=== PATIENT | female | born 1965 | race Caucasian/White ===

== ENCOUNTER 2022-02-03 11:42 | Observation (INO) ==
[2022-02-03] MEDS ORDERED: SODIUM CHLORIDE 0.9% 1000ML 2,000 ML IV ONE (12:15)
--- NOTE | 2022-02-03 12:19 | Emergency Department Note ---
History of Present Illness General Chief complaint: Hypotension Stated complaint: Hypotension, recent med change Time Seen by Provider: 02/03/22 11:57 History of Present Illness 56-year-old female presents to the ED with a chief complaint of decrease in blood pressure. The patient states that she has been at the [facility] for about a week. She states that she is unsure in all the medication that she is taking but according to the nurses notes per EMS the patient was recently started on Klonopin. The patient does states that she has been sleeping a lot and she does eat and drink while she is awake. She does feel little lightheaded. No other specific complaints at this time. No recent illness. No fevers or cough. No shortness of breath or chest pains. No abdominal pains. No vomiting or diarrhea. No blood in her stools or black tarry stools. She is at the [facility] for some suicidal ideation. Past Med/Surg History Social History Smoking Status: Never smoker Preferred Language: Danish Feels Safe at Home: Yes Review of Systems A total of 10 systems reviewed and were otherwise negative Physical Exam Vital Signs Vital Signs - 24 hr 02/03/22 11:49 02/03/22 11:49 02/03/22 12:19 Pulse Rate 72 Pulse Rate [Apical] 73 Respiratory Rate 18 18 Blood Pressure 137/86 Blood Pressure [Right Arm] 94/58 L Blood Pressure Mean 103 Blood Pressure Mean [Right Arm] 70 Blood Pressure Position Lying Pulse Oximetry 96 97 95 Oxygen Delivery Method Room Air Sepsis Recent Fever Within 48 Hours No Sepsis New/Unexplained Change in Mental Status N/A Sepsis Action Taken by Nursing No Action Required CONSTITUTIONAL/VITAL SIGNS: Reviewed / noted above. GENERAL: Non-toxic in appearance. INTEGUMENTARY: Warm, dry, and [place]. HEAD: Normocephalic. EYES: without scleral icterus or trauma. ENT/OROPHARYNX: clear and moist. LYMPHADENOPATHY/NECK: Is supple without lymphadenopathy or meningismus. RESPIRATORY: Clear to auscultation bilaterally. No increased work of breathing. CARDIOVASCULAR: Regular rate and rhythm. GI/ABDOMEN: Soft and nontender. No organomegaly or pulsatile mass. EXTREMITIES: Warm and well perfused. BACK: No CVA tenderness. NEUROLOGICAL: Intact without focal deficits. PSYCHIATRIC: normal affect. MUSCULOSKELETAL: Normally developed with good muscle tone. TRIAGE NURSING DOCUMENTATION REVIEWED. Course Administered Medications Sodium Chloride (Nss 1000ml) 2,000 mls @ 999 mls/hr IV .Q2H1M ONE Stop: 02/03/22 14:15 Last Admin: 02/03/22 12:43 Dose: 999 mls/hr Documented By: RIO Medical Decision Making Differential Diagnosis Differential includes acute coronary syndrome, myocardial infarction, CVA, TIA, anemia, infection, pneumonia, UTI, pyelonephritis, poor nutrition, dehydration, electrolyte disturbance,hypoglycemia. Medical Records Attestation: I reviewed the patient's medical records. Home Medications Current Medication List: was personally reviewed by me Laboratory Data Attestation: I reviewed the patient's lab results. Result diagrams: 02/03/22 12:30 02/03/22 12:30 Lab Results 02/03/22 02/03/22 02/03/22 Range/Units 12:30 12:30 12:30 WBC 4.91 (4.8-10.8) K/ul RBC 4.07 (3.93-5.22) M/uL Hgb 11.9 L (12.0-16.0) g/dl Hct 36.9 (34.1-44.9) % MCV 90.7 (80.0-100.0) fL MCH 29.2 (25.0-34.0) pg MCHC 32.2 (32.0-36.0) g/dL RDW Std Deviation 43.2 (36.4-46.3) fL RDW Coeff of [place] 13.0 (11.5-14.5) % Plt Count 245 (130-400) K/uL MPV 10.1 (9.4-12.3) fL Immature Gran % (Auto) 0.4 % Neut % (Auto) 68.8 % Lymph % (Auto) 19.8 % [place] % (Auto) 9.0 % Eos % (Auto) 1.4 % Baso % (Auto) 0.6 % Neut # (Auto) 3.38 (1.4-6.5) K/uL Lymph # (Auto) 0.97 L (1.2-3.4) K/uL [place] # (Auto) 0.44 (0.24-0.82) K/uL Eos # (Auto) 0.07 (0-0.50) K/uL Baso # (Auto) 0.03 (0-0.2) K/uL Immature Gran # (Auto) 0.02 (0.00-0.02) K/uL PT 10.9 (9.0-12.0) Seconds INR 1.0 (0.9-1.1) Sodium 141 (136-145) mmol/L Potassium 4.2 (3.5-5.1) mmol/L Chloride 113 H (98-107) mmol/L Carbon Dioxide 23 (21-32) mmol/L Anion Gap 5 (3-11) BUN 17 (6-23) mg/dl Creatinine 1.14 (0.6-1.2) mg/dl Est Cr Clr Drug Dosing 49.6 ml/min Est GFR ( Amer) 62.3 ml/min Est GFR (Non-Af Amer) 53.7 ml/min BUN/Creatinine Ratio 14.9 (10-20) Glucose 81 (70-99(Fasting)) mg/dl Calcium 8.4 L (8.5-10.1) mg/dl Magnesium 2.1 (1.7-2.4) mg/dl Total Bilirubin 0.4 (0.2-1.0) mg/dl AST 24 (13-39) U/L ALT 19 (7-52) U/L Alkaline Phosphatase 47 (34-104) U/L Total Creatine Kinase 23 L (26-192) U/L Troponin I High Sens < 2.3 (0-14) pg/ml Total Protein 5.5 L (6.0-8.3) gm/dl Albumin 3.6 (3.4-5.0) gm/dl Globulin 1.9 L (2.5-4.0) gm/dl Albumin/Globulin Ratio 1.9 (0.9-2) Imaging Data Radiologist's Impression: Chest X-Ray 02/03/22 12:15 XR chest 1V portable HISTORY: weakness COMPARISON: None. FINDINGS: No pneumothorax. No pleural effusions. The correct silhouette is normal in size. Mild interstitial thickening at the left lung base. Otherwise, no focal lung consolidations. No evidence for pulmonary edema. The right lung is clear. IMPRESSION: Mild interstitial thickening seen at the left lung base. This could be chronic or represent a mild interstitial pneumonitis. ACT 112: Negative or not required by law. Electronically signed by: Luis Mireles M.D. 02/03/2022 1:28 PM ECG Data Attestation: I personally reviewed and interpreted this ECG as follows: Additional Comments: Twelve-lead EKG: Per my interpretation shows a normal sinus rhythm at a rate of 74. No acute ischemic changes. ST elevation. No PVCs. Normal QTC. MDM Narrative 56-year-old female presents with a chief complaint of low blood pressure. The patient has had a low blood pressure for at least a day or 2, according to her admission. She is at the [facility]. Details listed above. Her vital signs here were in the 80-90 systolic range. She reports feeling a little lightheaded but otherwise no specific symptoms or complaints. I did perform orthostatics on the patient. This was after 2 L normal saline. Blood pressure was originally 94/58 with a heart rate of 73. Blood pressure afterword was 88/67 with a heart rate in the 80s. She states that she felt shaky but was not lightheaded. She states that the shakiness is somewhat chronic. Because of the patient's ongoing low blood pressure, without any significant symptoms, I feel the patient would benefit from further inpatient evaluation. Is unclear what the patient's baseline blood pressure is as she has not been here before but she claims that her blood pressure has been 118/78 in the past. I did speak with the hospitalist about this patient. Impression & Plan Acute hypotension Discharge Plan Visit Data Chief Complaint: Hypotension Stated Complaint: Hypotension, recent med change ED Provider: Gus Mcgill Discharge Problem: Acute hypotension Patient Disposition: Being Evaluated by Hospitalist Forms Stand Alone Forms: My [facility] Referrals Referrals: PCP,NO [Primary Care Provider] -
[2022-02-03 13:01] LABS: Basophils # (auto) 0.03 K/uL (0-0.2); Basophils % (auto) 0.6 %; Eosinophils # (auto) 0.07 K/uL (0-0.50); Eosinophils % (auto) 1.4 %; Hematocrit (blood only) 36.9 % (34.1-44.9); Hemoglobin 11.9 g/dl (12.0-16.0); Immature Granulocytes # (auto) 0.02 K/uL (0.00-0.02); Immature Granulocytes % (auto) 0.4 %; Lymphocytes # (auto) 0.97 K/uL (1.2-3.4); Lymphocytes % (auto) 19.8 %; Mean Corpuscular Hemoglobin 29.2 pg (25.0-34.0); Mean Corpuscular Hgb Conc 32.2 g/dL (32.0-36.0); Mean Corpuscular Volume 90.7 fL (80.0-100.0); Mean Platelet Volume 10.1 fL (9.4-12.3); Monocytes # (auto) 0.44 K/uL (0.24-0.82); Neutrophils # (auto) 3.38 K/uL (1.4-6.5); Neutrophils % (auto) 68.8 %; Platelet Count 245 K/uL (130-400); RDW Standard Deviation 43.2 fL (36.4-46.3); Red Blood Count 4.07 M/uL (3.93-5.22); White Blood Count 4.91 K/ul (4.8-10.8)
[2022-02-03 13:12] LABS: Prothrombin Time 10.9 Seconds (9.0-12.0)
[2022-02-03 13:29] LABS: Troponin I High Sensitivity < 2.3 pg/ml (0-14)
--- NOTE | 2022-02-03 13:29 | XRay Report ---
XR chest 1V portable HISTORY: weakness COMPARISON: None. FINDINGS: No pneumothorax. No pleural effusions. The correct silhouette is normal in size. Mild inter stitial thickening at the left lung base. Otherwise, no focal lung consolidations. No evidence for pu lmonary edema. The right lung is clear. IMPRESSION: Mild interstitial thickening seen at the left lung base. This could be chronic or represent a mild in terstitial pneumonitis. ACT 112: Negative or not required by law. Electronically signed by: Luis Mireles M.D. 02/03/2022 1:28 PM
[2022-02-03 13:30] LABS: Alanine Aminotransferase 19 U/L (7-52); Albumin Globulin Ratio 1.9 (0.9-2); Albumin Level 3.6 gm/dl (3.4-5.0); Alkaline Phosphatase 47 U/L (34-104); Anion Gap 5 (3-11); Aspartate Aminotransferase 24 U/L (13-39); BUN Creatinine Ratio 14.9 (10-20); Bilirubin,Total 0.4 mg/dl (0.2-1.0); Blood Urea Nitrogen 17 mg/dl (6-23); Calcium 8.4 mg/dl (8.5-10.1); Carbon Dioxide 23 mmol/L (21-32); Chloride 113 mmol/L (98-107); Creatine Kinase 23 U/L (26-192); Creatinine Clr Calc Pharmacy 49.6 ml/min; Est GFR (African American) 62.3 ml/min; Est GFR (Non-African American) 53.7 ml/min; Globulin 1.9 gm/dl (2.5-4.0); Glucose 81 mg/dl (70-99(Fasting)); Magnesium 2.1 mg/dl (1.7-2.4); Potassium 4.2 mmol/L (3.5-5.1); Sodium 141 mmol/L (136-145); Total Protein 5.5 gm/dl (6.0-8.3)
--- NOTE | 2022-02-03 15:01 | History & Physical Report ---
Date of Service February 03, 2022 Assessment & Plan (1) Acute hypotension: (2) Diplopia: (3) Hypothyroidism: (4) Headache, migraine: (5) Depression: (6) Anxiety: (7) Fibromyalgia: Plan This is a 56yo F with a PMH of depression, anxiety, hypothyroidism, fibromyalgia, migraine headaches and hypothyroidism who presents from [facility] with 3 days of hypotension. Hypotension SBP 70-90s prior to arrival, improved to 102/64 with 2 L NSS Baseline BP 110/70s Afebrile, no leukocytosis. Hgb 11.9. Lactate and procal WNL. TSH WNL EKG with NSR. No acute ST changes, prolonged qtc Orthostatics negative in ED. FOBT pending CXR with Mild interstitial thickening seen at the left lung base. This could be chronic or represent a mild interstitial pneumonitis. Possible medication component- Previously on Prozac and Wellbutrin, both of which have been discontinued during [facility] admission and reportedly started on Sinemet, Keppra, Effexor and ? Klonopin recently Psych consulted for medication recommendations Uncomplicated UTI UA abnormal, urine and blood cultures pending. Non-toxic appearance, does not meet sepsis criteria. Starting empiric rocephin Diplopia Noted over past 2 days. No weakness. In setting of new medication changes MRI brain w/wo to rule out mass Anxiety Depression Suicidal ideation Admitted at the [facility] for suicidal ideation. Recently started on Effexor, Keppra and Sinemet. Has chronic resting tremor Appreciate psychiatry recommendations Prolonged QTc QTc of 510 on admission. Unsure if this is new with medication changes? Avoid prolonging agents, repeat ECG in AM Hypothyroidism TSH WNL. Continue levothyroxine History of migraine headaches Continue Topamax DVT Ppx: SQ lovenox Code status: FULL PCP: currently at [facility] Dispo: Obs tele Patient seen in collaboration with Dr. Li. Please see addendum. History of Present Illness Primary Care Provider: NO PCP This is a 56yo F with a PMH of depression, anxiety, hypothyroidism, fibromyalgia, migraine headaches and hypothyroidism who presents from [facility] with 3 days of hypotension. Resides in [facility]. Baseline BP 110s/70s. Over past 3 days, patient has felt more fatigued and lightheaded. Endorses blurry and double vision. Has been sleepin gmore. Systolic blood p ressure has been ranging from 70s-90s over the past few days so sent in for further evaluation. Previously on Wellbutrin and Prozac for MDD and admitted to the [facility] for suicidal ideation approximately 1 week ago. Now on Keppra and Effexor. According to nurses notes per EMS, patient was recently started on Klonopin. Denies any fever, chills, CP, SOB, N/V, abdominal pain, dysuria, diarrhea or constipation. No melena or hematochezia. Allergies Allergy/AdvReac Type Severity Reaction Status Date / Time No Known Allergies Allergy Unverified 02/03/22 15:20 Home Medications Medication Instructions Recorded Confirmed Type acetaminophen 325 mg tablet 650 mg PO Q4 PRN Pain 02/03/22 02/03/22 History [id number] 250 2 tab PO DAILY PRN migraines 02/03/22 02/03/22 History mg-250 mg-65 mg tablet (Excedrin Extra Strength) carbidopa 25 mg-levodopa 100 mg 1 tab PO DAILY 02/03/22 02/03/22 History tablet levetiracetam 250 mg tablet 250 mg PO TID 02/03/22 02/03/22 History levothyroxine 50 mcg tablet 50 mcg PO .DAILY AT 0700 02/03/22 02/03/22 History topiramate 100 mg tablet 100 mg PO BID 02/03/22 02/03/22 History venlafaxine 150 mg 150 mg PO .DAILY AT 1300 02/03/22 02/03/22 History capsule,extended release 24 hr venlafaxine 150 mg 150 mg PO DAILY 02/03/22 02/03/22 History capsule,extended release 24 hr Past Med/Surg History Medical History Anxiety Depression Fibromyalgia Headache, migraine Hypothyroidism Surgical History Status post surgical removal of malignant neoplasm of skin Family History Other Cancer Hypertension Social History (Updated 02/03/22 @ 14:59 by Debo Anderson PA-C) Smoking Status: Former smoker Smoking End Date: 2018; Hx Alcohol Use: Yes Alcohol Intake Frequency: Monthly or Less Hx Substance Use: No Preferred Language: Hebrew Feels Safe at Home: Yes Review of Systems Review of Systems: At least ten systems reviewed and negative except as noted in the HPI. Physical Exam Physical Exam: Please see Dr. Li's addendum for physical exam. Results & Data Results & Data ([facility]) Vital Signs (Past 12 Hours) Vital Signs Pulse Pulse Resp BP BP Pulse Ox O2 Del Method 02/03/22 14:52 68 16 102/64 96 Room Air 02/03/22 12:19 95 Room Air 02/03/22 11:49 73 18 94/58 L 97 02/03/22 11:49 72 18 137/86 96 Laboratory Results Short CBC 02/03/22 Range/Units 12:30 WBC 4.91 (4.8-10.8) K/ul Hgb 11.9 L (12.0-16.0) g/dl Hct 36.9 (34.1-44.9) % Plt Count 245 (130-400) K/uL BMP 02/03/22 12:30 Sodium 141 Potassium 4.2 Chloride 113 H Carbon Dioxide 23 BUN 17 Creatinine 1.14 Glucose 81 Calcium 8.4 L Cardiac Enzymes 02/03/22 Range/Units 12:30 Total Creatine Kinase 23 L (26-192) U/L Liver Function 02/03/22 Range/Units 12:30 Total Bilirubin 0.4 (0.2-1.0) mg/dl AST 24 (13-39) U/L ALT 19 (7-52) U/L Alkaline Phosphatase 47 (34-104) U/L Albumin 3.6 (3.4-5.0) gm/dl Diagnostic Findings Chest X-Ray 02/03/22 12:15 XR chest 1V portable HISTORY: weakness COMPARISON: None. FINDINGS: No pneumothorax. No pleural effusions. The correct silhouette is normal in size. Mild interstitial thickening at the left lung base. Otherwise, no focal lung consolidations. No evidence for pulmonary edema. The right lung is clear. IMPRESSION: Mild interstitial thickening seen at the left lung base. This could be chronic or represent a mild interstitial pneumonitis. ACT 112: Negative or not required by law. Electronically signed by: Luis Mireles M.D. 02/03/2022 1:28 PM Code Status & VTE Plan VTE Prophylaxis Plan VTE Prophylaxis will be ordered: Yes Supervising Physician Co-Signing Physician Notes Pt is a 56 y/o F with hx of depression, anxiety, hypothyroidism Fibromyalgia, migraine admitted for hypotension and diplopia. -Labs from 01/20 showed hgb of 12.7 - pt was admitted to inpt psych & was started on Sinemet, Effexor, Keppra, and Topamax --- pt denied any hx of seizure, CVA, or parkinsons disease PE: NAd, well developed HEENT: PERRLA, EOMI, normal conjunctiva Lungs: CTA, no wheezing or crackles Cardiac: Normal S1/S2, no murmur Abd: ND, NT, soft MSK: no LE edema, symmetrical movements of the UE and LEs Psych: AAOX3 A/P: Hypotension: -pts outpt clinic BP was 112/64 (last visit) -will monitor BP --- admit to tele -due to drop in hgb will get FOBT --- pt denied any abd symptoms -will repeat EKG in the morning -will get echo to rule out any valvular problems - will get UA, BCx --- UA + for nitrite and leuk therefore will start pt on ceftriaxone Diplopia: -pt denied any acute slurred speech, weakness, dizziness -not suspecting acute stroke however will get MRI brain -- consult neurology if MRI brain abnormal Severe depression: -pt denied any SI -pt was on Prozac and Wellbutrin prior to inpt psych admission ---will verify medications with [facility] ---will consider holding Sinemet, and Keppra -consult psych Agree with A/P by Debo Anderson PA-C
[2022-02-03 15:10] LABS: Appearance Urine Cloudy (Clear); Bacteria Urine Automated 4+ (Negative); Bilirubin Urine Negative (Negative); Blood Urine Negative (Negative); Color Urine Yellow; Epithelial Cell Urine Auto >30 /lpf (0-5); Glucose Urine UA Negative (Negative); Ketones Urine Negative (Negative); Leukocyte Esterase Urine 2+ (Negative); Nitrite Urine Positive (Negative); Protein Urine Negative (Negative); RBC Urine Automated 0-4 /hpf (0-4); Specific Gravity Urine 1.009 (1.000-1.030); Urobilinogen Urine Negative (Negative); pH Urine 7.5 (4.5-7.5)
[2022-02-03] MEDS ORDERED: ACETAMINOPHEN 325 MG TAB PO PRN ×2 (16:00→17:17)
[2022-02-03] MEDS ORDERED: NON-FORMULARY MEDICATION (Aspirin-Acetaminophen-Caffeine [Excedrin Extra Strength] 250-250 PO PRN (16:00)
[2022-02-03] MEDS ORDERED: POLYETHYLENE (MIRALAX) 17 GM PACK PO PRN (17:17)
[2022-02-03] MEDS ORDERED: VENLAFAXINE HCL XR 150 MG CAPXR PO SCH (17:30)
[2022-02-03] MEDS: cefTRIAXone SODIUM 1,000 MG in DEXTROSE 5% 50 ML IV SCH (17:52)
[2022-02-03] MEDS: ENOXAPARIN INJ 40 MG/0.4 ML SYR SQ SCH (17:54)
[2022-02-03] MEDS: SODIUM CHLORIDE 0.9% 1000ML 1,000 ML IV SCH (17:59)
--- NOTE | 2022-02-03 20:09 | Communication Note ---
Date of Service: February 03, 2022 consult received, chart reviewed. full consult to follow with review of records from [facility]. Multiple med changes there, currently unclear indication for Sinemet and Keppra. Effexor xR total daily dose quite high if recent start, got 150 mg here so far, will hold am dose pending full consult. Effexor XR should not contribute to hypotension, will need to confirm amount of benzo/other prns received at [facility].
[2022-02-03] MEDS ORDERED: LORazepam 0.5 MG TAB PO STA (23:30)
[2022-02-03] MEDS: TOPIRAMATE 100 MG TAB PO SCH (23:46)
[2022-02-04] MEDS ORDERED: GADOBUTROL 65ML VIAL IV ONE (00:25)
[2022-02-04] MEDS: LEVOTHYROXINE SODIUM 50 MCG TABLET PO SCH (05:52)
--- NOTE | 2022-02-04 05:59 | Electrocardiogram Report ---
Test Reason : Blood Pressure : / mmHG Vent. Rate : 074 BPM Atrial Rate : 074 BPM P-R Int : 176 ms QRS Dur : 072 ms QT Int : 460 ms P-R-T Axes : 072 034 059 degrees QTc Int : 510 ms Poor data quality, interpretation may be adversely affected Normal sinus rhythm Possible Left atrial enlargement Low voltage QRS Septal infarct , age undetermined Prolonged QT Abnormal ECG No previous ECGs available Confirmed by Khoi Gates ([id number]) on 02/04/2022 5:58:35 AM Referred By: REFERRED SELF Confirmed By:Khoi Gates
[2022-02-04 06:19] LABS: Hematocrit (blood only) 34.8 % (34.1-44.9); Hemoglobin 11.4 g/dl (12.0-16.0); Mean Corpuscular Hemoglobin 29.5 pg (25.0-34.0); Mean Corpuscular Hgb Conc 32.8 g/dL (32.0-36.0); Mean Corpuscular Volume 89.9 fL (80.0-100.0); Platelet Count 217 K/uL (130-400); RDW Coefficient of Variation 13.1 % (11.5-14.5); RDW Standard Deviation 42.5 fL (36.4-46.3); Red Blood Count 3.87 M/uL (3.93-5.22); White Blood Count 5.77 K/ul (4.8-10.8)
[2022-02-04] MEDS: SODIUM CHLORIDE 0.9% 1000ML 1,000 ML IV SCH (06:23)
[2022-02-04 06:47] LABS: BUN Creatinine Ratio 13.3 (10-20); Calcium 8.4 mg/dl (8.5-10.1); Creatinine Clr Calc Pharmacy 53.8 ml/min; Est GFR (African American) 68.8 ml/min; Est GFR (Non-African American) 59.3 ml/min; Potassium 4.1 mmol/L (3.5-5.1)
--- NOTE | 2022-02-04 07:02 | Psychiatric Consultation ---
Date of Consultation February 04, 2022 Impression / Recommendations Impression 56 yo female admit from [facility] for hypotension following significant medication changes--unclear how much is discontinuation syndrome vs. rapid titration of new agents. Tremor/jitteriness, etc could suggest some degree of serotonin syndrome but that typically presents with hypertension so possibly discontinuation syndrome. Hypotension is also unusual with high dose Effexor XR. QTc issues likely also polypharm. (1) Depression: (2) Anxiety: (3) Acute hypotension: Plan At this point Effexor XR was held this am, can resume at much lower dose of 150 mg po qam tomorrow (06/08), Prozac likely still clearing system given t 06/08 so remains at risk for serotonin syndrome. would not resume Keppra, explained that cannot treat tremor as not yet baseline and main rx would be beta nika which can cause hypotension. patient should remain on 1-on-1 Obs pending medical clearance and return to the [facility] to complete her inpatient psychiatric care. She is agreeable to remain voluntary. Psych History Identifying Data 56 yo female admit from the [facility] for persistent hypotension. Consult is by hospitalist service for management while admitted medically pending return to [facility]. Chief Complaint "things aren't great at home, they changed so much there I felt unbalanced." History of Present Illness As per initial review: consult received, chart reviewed. full consult to follow with review of records from [facility]. Multiple med changes there, currently unclear indication for Sinemet and Keppra. Effexor xR total daily dose quite high if recent start, got 150 mg here so far, will hold am dose pending full consult. Effexor XR should not contribute to hypotension, will need to confirm amount of benzo/other prns received at [facility]. Last pm patient told liaison:Patient stated thats she went to the [facility] a week ago due to her son calling 911 because she said a few things. Patient states she was only on Bupropion 450, Fluoxetine 80mg, and Synthroid 50mcg. That she was placed on a bunch of medication when arriving at the [facility]. Patient was upset with relationship with stating, We should have never gotten . She states her spends all his time away from her and never sows her love. She was raised by her grandparents and never knew her biological father. She states her grandfather told her that her was the best she could get. Patient states she want to be more than just a parent to her kids, that she wants a loving relationship. She has a 15 year old son and a 22 year old son at home. She states that her is a narcissist. She said her blood pressures have been low for a week. Patient said she has had a diagnosis of depression and anxiety for about 10 years. Today told liaison: Patient seen on rounds, alert and oriented x 4 - but a little forgetful, laying in bed with eyes closed, patient denies SI or plan but simply states multiple times "I just keep telling everyone, like, it would be fine if everything ended and this all went away" while pointing her hand around the room, patient states she has made these statements many times over the years to friends and family and "nobody ever cares", but her 22 year old son she lives with called the police after a recent statement which resulted in an inpatient stay at the [facility] on a 201. Patient was at the [facility] "for about a week, I'm not sure, I slept a lot" when she became dizzy and was found hypotensive, she is currently being treated for a UTI during this hospital admission, patient has a psych iatrist Dr. Shahab Espinoza and a therapist outpatient that she has been seeing for many years - she is unable to definitely state if she finds those services helpful, but describes a family dynamic that is the main contributor to her depression "my is a narcissist, he yells at me, he has not cared about me for 30 years, I should have never him. If I suggested counseling he would say 'no' - I know it! Two of my children live with me, a 22 year old and a 15 year old. The 22 year old only cares about hunting and not about me. I have called my mother, my sister, and many of my good friends to talk to them and none of them care about my bullshit. They only want to talk about theirs". Patient states "I just want to get a divorce and go live on my own and do what I want to do, but I can't because I have no money". Patient further elaborates saying "my does not let me work because he would lose his state benefits and our income would rise too much. So I'm stuck in the house all alone all day". Patient currently takes 80mg Prozac daily and 450mg of Wellbutrin per report. Thanked this liaison for listening and denied other needs at this time. Med changes were confirmed as: Keppra 250 TID for mood, Effexor 150 BID, Cinemet 1 tab 25/100 daily for tremors, Topomax 50mg BID for headaches. PRN excedrin/tylenol. She was admitted there on 01/27/22 on Wellbutrin XL 450 mg daily and Prozac 80 mg daily for "several years, I was told I was maxed out." She states she has restless legs and tremors at baseline but her UE tremor is more coarse than baseline. Allergies Allergy/AdvReac Type Severity Reaction Status Date / Time No Known Allergies Allergy Unverified 02/03/22 15:20 Home Medications Medication Instructions Recorded Confirmed Type acetaminophen 325 mg tablet 650 mg PO Q4 PRN Pain 02/03/22 02/03/22 History psazuxm-bcsiphvptsdis-awivjugu 250 2 tab PO DAILY PRN migraines 02/03/22 02/03/22 History mg-250 mg-65 mg tablet (Excedrin Extra Strength) carbidopa 25 mg-levodopa 100 mg 1 tab PO DAILY 02/03/22 02/04/22 History tablet levetiracetam 250 mg tablet 250 mg PO TID 02/03/22 02/03/22 History levothyroxine 50 mcg tablet 50 mcg PO .DAILY AT 0700 02/03/22 02/03/22 History topiramate 100 mg tablet 50 mg PO BID 02/03/22 02/04/22 History venlafaxine 150 mg 150 mg PO .DAILY AT 0900. 02/03/22 02/04/22 History capsule,extended release 24 hr venlafaxine 150 mg 150 mg PO .DAILY AT 1300 02/03/22 02/03/22 History capsule,extended release 24 hr bupropion HCl 150 mg 24 hr tablet, 450 mg PO QAM 02/04/22 02/04/22 History extended release (Wellbutrin XL) fluoxetine 40 mg capsule (Prozac) 80 mg PO DAILY 02/04/22 02/04/22 History Personal History Beliefs That Will Affect Care: None Patient History Medical History Anxiety Depression Fibromyalgia Headache, migraine Hypothyroidism Surgical History Status post surgical removal of malignant neoplasm of skin Family History Other Cancer Hypertension Social History Smoking Status: Unknown if ever smoked Smoking End Date: 2018; Hx Alcohol Use: Yes Alcohol Intake Frequency: Monthly or Less Hx Substance Use: No Preferred Language: Burundian Communication Ability: Effective Flamer Sealer Required: No Beliefs That Will Affect Care: None marital status: Current Living Situation: Spouse and Family How many Children do You have: 2 Feels Safe at Home: Yes Assistive Devices: None Physical Exam Psychiatric: Orientation: alert Apperance: + disheveled Eye Contact: + fair eye contact Motor Behavior: + tremor (coarse) Speech: normal rate/rhythm/volume of speech Affect: + depressed affect Mood: + depressed mood and + anxious mood Thought Process: + concrete thought process Thought Content: reality based without delusions Suicidal Thoughts: denies suicidal thoughts (yet also can't contract for safety outside of hospital) Homicidal Thoughts: denies homicidal thoughts Hallucinations: no auditory hallucinations and no visual hallucinations Cognition: attention grossly intact and language grossly intact Estimated Intelligence: consistent with education level Insight: + limited insight Judgement: + limited judgement Vital Signs (Past 24 Hours): Last Vital Signs Temp 36.7 C 02/04/22 06:11 Pulse 71 02/04/22 06:11 Resp 18 02/04/22 06:11 BP 105/71 02/04/22 06:11 Pulse Ox 94 02/04/22 06:11 O2 Del Method 02/04/22 06:11 Review of Systems All systems reviewed & are unremarkable except as noted in HPI & below Results & Data (PSY) Laboratory Results 02/04/22 02/04/22 02/03/22 Range/Units 05:55 05:55 Unknown WBC 5.77 (4.8-10.8) K/ul RBC 3.87 L (3.93-5.22) M/uL Hgb 11.4 L (12.0-16.0) g/dl Hct 34.8 (34.1-44.9) % MCV 89.9 (80.0-100.0) fL MCH 29.5 (25.0-34.0) pg MCHC 32.8 (32.0-36.0) g/dL RDW Std Deviation 42.5 (36.4-46.3) fL RDW Coeff of Sharon 13.1 (11.5-14.5) % Plt Count 217 (130-400) K/uL MPV 10.0 (9.4-12.3) fL Sodium 140 (136-145) mmol/L Potassium 4.1 (3.5-5.1) mmol/L Chloride 116 H (98-107) mmol/L Carbon Dioxide 21 (21-32) mmol/L Anion Gap 3 (3-11) BUN 14 (6-23) mg/dl Creatinine 1.05 (0.6-1.2) mg/dl Est Cr Clr Drug Dosing 53.8 ml/min Est GFR ( Amer) 68.8 ml/min Est GFR (Non-Af Amer) 59.3 ml/min BUN/Creatinine Ratio 13.3 (10-20) Glucose 87 (70-99(Fasting)) mg/dl Lactate (0.4-2.0) mmol/L Calcium 8.4 L (8.5-10.1) mg/dl Urine Color Urine Appearance (Clear) Urine pH (4.5-7.5) Ur Specific [place] (1.000-1.030) Urine Protein (Negative) Urine Glucose (UA) (Negative) Urine Ketones (Negative) Urine Blood (Negative) Urine Nitrite (Negative) Urine Bilirubin (Negative) Urine Urobilinogen (Negative) Ur Leukocyte Esterase (Negative) Urine WBC (Auto) (0-5) /hpf Urine RBC (Auto) (0-4) /hpf U Hyaline Cast (Auto) (0-5) /lpf U Epithel Cells (Auto) (0-5) /lpf Urine Bacteria (Auto) (Negative) SARS-CoV-2, RNA, NAAT NEGATIVE (NEGATIVE) 02/03/22 02/03/22 Range/Units Unknown 14:42 WBC (4.8-10.8) K/ul RBC (3.93-5.22) M/uL Hgb (12.0-16.0) g/dl Hct (34.1-44.9) % MCV (80.0-100.0) fL MCH (25.0-34.0) pg MCHC (32.0-36.0) g/dL RDW Std Deviation (36.4-46.3) fL RDW Coeff of Sharon (11.5-14.5) % Plt Count (130-400) K/uL MPV (9.4-12.3) fL Sodium (136-145) mmol/L Potassium (3.5-5.1) mmol/L Chloride (98-107) mmol/L Carbon Dioxide (21-32) mmol/L Anion Gap (3-11) BUN (6-23) mg/dl Creatinine (0.6-1.2) mg/dl Est Cr Clr Drug Dosing ml/min Est GFR ( Amer) ml/min Est GFR (Non-Af Amer) ml/min BUN/Creatinine Ratio (10-20) Glucose (70-99(Fasting)) mg/dl Lactate 0.6 (0.4-2.0) mmol/L Calcium (8.5-10.1) mg/dl Urine Color Yellow Urine Appearance Cloudy A (Clear) Urine pH 7.5 (4.5-7.5) Ur Specific [place] 1.009 (1.000-1.030) Urine Protein Negative (Negative) Urine Glucose (UA) Negative (Negative) Urine Ketones Negative (Negative) Urine Blood Negative (Negative) Urine Nitrite Positive A (Negative) Urine Bilirubin Negative (Negative) Urine Urobilinogen Negative (Negative) Ur Leukocyte Esterase 2+ H (Negative) Urine WBC (Auto) 10-30 H (0-5) /hpf Urine RBC (Auto) 0-4 (0-4) /hpf U Hyaline Cast (Auto) 1-5 (0-5) /lpf U Epithel Cells (Auto) >30 H (0-5) /lpf Urine Bacteria (Auto) 4+ H (Negative) SARS-CoV-2, RNA, NAAT (NEGATIVE) Medications Administered Enoxaparin Sodium (Enoxaparin Inj 40 Mg/0.4 Ml Syr) 40 mg SQ Q24H NUNU Stop: 03/05/22 17:29 Last Admin: 02/03/22 17:54 Dose: 40 mg Documented By: BLAKE Ceftriaxone Sodium 1,000 mg/ (Dextrose) 60 mls @ 100 mls/hr IV DAILY NUNU; Protocol Stop: 02/08/22 16:14 Last Infusion: 02/03/22 19:00 Dose: 0 mls/hr Documented By: Admin: 02/03/22 17:52 Dose: 100 mls/hr Documented By: BLAKE Sodium Chloride (Nss 1000ml) 1,000 mls @ 100 mls/hr IV .Q10H NUNU Stop: 02/04/22 11:59 Last Admin: 02/04/22 06:23 Dose: 100 mls/hr Documented By: PLClement Infusion: 02/04/22 03:59 Dose: 100 mls/hr Documented By: Admin: 02/03/22 17:59 Dose: 100 mls/hr Documented By: BLAKE Levothyroxine Sodium (Levothyroxine Sodium 50 Mcg Tablet) 50 mcg PO DAILYBB NUNU Stop: 03/06/22 06:29 Last Admin: 02/04/22 05:52 Dose: 50 mcg Documented By: PLClement Topiramate (Topiramate 100 Mg Tab) 100 mg PO BID NUNU Stop: 03/05/22 20:59 Last Admin: 02/03/22 23:46 Dose: 100 mg Documented By: EMILIO Venlafaxine HCl (Venlafaxine Hcl Xr 150 Mg Capxr) 150 mg PO BID@0900,1300 COUNT INCLUDES THE [facility] Stop: 03/05/22 17:29 Last Admin: 02/03/22 17:55 Dose: 150 mg Documented By: BLAKE Coding Level of Care Code 74437 [facility] Intl Hosp Care Lvl 2 Diagnoses Depression F32.A Anxiety F41.9 Acute hypotension I95.9
[2022-02-04] MEDS ORDERED: VENLAFAXINE HCL XR 150 MG CAPXR PO SCH (09:00)
[2022-02-04] MEDS: TOPIRAMATE 100 MG TAB PO SCH ×2 (09:25→20:28)
[2022-02-04] MEDS: cefTRIAXone SODIUM 1,000 MG in DEXTROSE 5% 50 ML IV SCH (09:29)
--- NOTE | 2022-02-04 10:51 | Magnetic Resonance Report ---
MRI OF THE BRAIN COMBO CLINICAL HISTORY: Diplopia. Migraine headache. COMPARISON STUDY: No priors. TECHNIQUE: MRI of the brain was performed utilizing various T1 and T2-weighted sequences in the axial , sagittal, and coronal planes. Contrast-enhanced sequences were acquired following the administratio n of 5.5 cc of Gadavist. FINDINGS: Brain parenchyma: There is a minimal microangiopathic change. There is no hemorrhage or mass effect. There is no restricted diffusion to suggest acute ischemia. No enhancing mass lesion is identified on the postcontrast images. Samson-white matter differentiation is preserved. No extra-axial fluid collec tion is seen. The cerebellar tonsils are normal in configuration. Ventricles, sulci, and cisterns: Normal in configuration. Pituitary and sella: Unremarkable. Intracranial vasculature: Normal flow voids are maintained at the skull base. Orbits: The bony orbits are grossly intact. Orbital contents are normal in appearance. Sinuses and mastoids: There is trace mucosal thickening within the maxillary antra, as well as the fr ontal and sphenoid sinuses. The mastoid air cells are clear. Calvarium: Unremarkable. Cervical cord: Partially visualized cervical spinal cord is normal in morphology and signal intensity . IMPRESSION: No intracranial abnormality is identified. ACT 112: Negative or not required by law. Electronically signed by: Oscar Fry M.D. 02/04/2022 10:50 AM
--- NOTE | 2022-02-04 12:46 | Hospitalist Progress Note ---
Date of Service February 04, 2022 Assessment & Plan (1) Acute hypotension: (2) Diplopia: (3) Hypothyroidism: (4) Headache, migraine: (5) Depression: (6) Anxiety: (7) Fibromyalgia: Plan 56yo F with a PMH of depression, anxiety, hypothyroidism, fibromyalgia, migraine headaches and hypothyroidism who presents from [place] with 3 days of hypotension. Hypotension SBP was reported to be 70-90s prior to arrival, improved to 102/64 with 2 L NSS BP is currently stable Afebrile, no leukocytosis. Hgb 11.9. Lactate and procal WNL. TSH WNL EKG with NSR. No acute ST changes, prolonged qtc Orthostatics negative in ED. F CXR with Mild interstitial thickening seen at the left lung base. This could be chronic or represent a mild interstitial pneumonitis. May be related to medications Previously on Prozac and Wellbutrin, both of which have been discontinued during [facility] admission and reportedly started on Sinemet, Keppra, Effexor and ? Justen recently Psych consulted for medication recommendations Uncomplicated UTI UA abnormal UCx - GNR Continue ceftriaxone and follow up cultures and sensitivities Diplopia Noted over 2 days prior to presentation. MRI brain did not show acute abnormalities I believe this is due to medication changes at psychiatric facility. Discussed with Psychiatrist Will monitor for now Fall precautions Anxiety Depression Admitted at the [facility] for suicidal ideation. Recently started on Effexor, Keppra and Sinemet. Some med changes at the facility as detailed by Psychiatrist Appreciate psychiatry recommendations Discussed with psychiatrist. Hold effexor and reeval in AM Prolonged QTc QTc of 510 on admission. Unsure if this is new with medication changes? Avoid prolonging agents, Repeat EKG this AM show improved QTc of 486 Hypothyroidism TSH WNL. Continue levothyroxine History of migraine headaches Continue Topamax DVT Ppx: SQ lovenox Code status: FULL PCP: currently at [place] Dispo: Obs tele Admission and Anticipated Discharge Date Admission Date: February 03, 2022 Subjective 56yo F with a PMH of depression, anxiety, hypothyroidism, fibromyalgia, migraine headaches and hypothyroidism who presents from [place] with 3 days of hypotension Patient seen and examined Reports feeling unsteady and diplopia for the past few days Denied any headache. Denied vertigo. Denied nausea, vomiting, abd pain, diarrhea, constipation Denied cough, chest pain, shortness of breath Denied dysuria, freq, urgency, hematuria Denied fevers or chills Reports depression but denies any suicidal plans. Physical Exam Constitutional: + well hydrated; no acute distress Eyes: PERRL, conjunctivae normal, anicteric sclerae ENMT: external ear and nose normal, oropharynx normal Respiratory: normal respiratory effort, lungs clear to auscultation Cardiovascular: Rate/Rhythm: regular rate and regular rhythm S1 S2 Gastrointestinal (Abdomen): normal bowel sounds, soft, nontender, no hepatosplenomegaly Musculoskeletal: no cyanosis or clubbing, extremities motor strength 5/5 Neurologic: PERRL, EOMI, accommodation nl, no face palsy, no dysarthria Psychiatric: Orientation: alert and oriented x 3 Motor Behavior: + tremor Affect: + flat affect Mood: + depressed mood Suicidal Thoughts: denies suicidal plan Results & Data Results & Data ([facility]) Vital Signs (Past 12 Hours) Vital Signs Temp Pulse Resp BP Pulse Ox O2 Del Method 02/04/22 11:47 36.6 C 79 18 106/72 98 Room Air 02/04/22 06:11 36.7 C 71 18 105/71 94 Room Air Laboratory Results Abnormal lab results 02/04/22 02/04/22 Range/Units 05:55 05:55 RBC 3.87 L (3.93-5.22) M/uL Hgb 11.4 L (12.0-16.0) g/dl Chloride 116 H (98-107) mmol/L Calcium 8.4 L (8.5-10.1) mg/dl
[2022-02-04] MEDS: ENOXAPARIN INJ 40 MG/0.4 ML SYR SQ SCH (18:21)
--- NOTE | 2022-02-04 22:36 | Electrocardiogram Report ---
Test Reason : Blood Pressure : / mmHG Vent. Rate : 071 BPM Atrial Rate : 071 BPM P-R Int : 186 ms QRS Dur : 074 ms QT Int : 448 ms P-R-T Axes : 074 043 076 degrees QTc Int : 486 ms Normal sinus rhythm Prolonged QT Abnormal ECG When compared with ECG of 03-FEB-2022 12:38, Criteria for Septal infarct are no longer Present T wave inversion no longer evident in Anterior leads Confirmed by Khoi Gates ([id number]) on 02/04/2022 10:35:47 PM Referred By: REFERRED SELF Confirmed By:Khoi Gates
[2022-02-05] MEDS: LEVOTHYROXINE SODIUM 50 MCG TABLET PO SCH (06:20)
[2022-02-05 07:52] LABS: BUN Creatinine Ratio 13.2 (10-20); Creatinine Clr Calc Pharmacy 52.2 ml/min; Est GFR (Non-African American) 58.7 ml/min; Magnesium 1.9 mg/dl (1.7-2.4); Phosphorus 3.5 mg/dl (2.5-4.9); Potassium 3.8 mmol/L (3.5-5.1)
[2022-02-05] MEDS ORDERED: VENLAFAXINE HCL XR 150 MG CAPXR PO SCH (09:00)
[2022-02-05] MEDS: TOPIRAMATE 100 MG TAB PO SCH ×2 (09:23→21:13)
[2022-02-05] MEDS: cefTRIAXone SODIUM 1,000 MG in DEXTROSE 5% 50 ML IV SCH (09:23)
--- NOTE | 2022-02-05 13:59 | Hospitalist Progress Note ---
Date of Service February 05, 2022 Assessment & Plan (1) Acute hypotension: (2) Diplopia: (3) Hypothyroidism: (4) Headache, migraine: (5) Depression: (6) Anxiety: (7) Fibromyalgia: Plan 56yo F with a PMH of depression, anxiety, hypothyroidism, fibromyalgia, migraine headaches and hypothyroidism who presents from [place] with 3 days of hypotension. Hypotension SBP was reported to be 70-90s prior to arrival, improved to 102/64 with 2 L NSS BP has remained stable. Afebrile, no leukocytosis. Hgb 11.9. Lactate and procal WNL. TSH WNL EKG with NSR. No acute ST changes, prolonged qtc Orthostatics negative in ED. CXR with Mild interstitial thickening seen at the left lung base. This could be chronic or represent a mild interstitial pneumonitis. Previously on Prozac and Wellbutrin, both of which have been discontinued during [facility] admission and reportedly started on Sinemet, Keppra, Effexor and ? Klonopin recently Uncomplicated UTI UA abnormal UCx - Pansensitive E coli Changed antibiotics to po to complete treatment Diplopia Noted over 2 days prior to presentation. MRI brain did not show acute abnormalities I believe this is due to medication changes at psychiatric facility. Will likely take time to resolve Fall precautions Anxiety Depression Admitted at the [facility] for suicidal ideation. Recently started on Effexor, Keppra and Sinemet. Some med changes at the facility as detailed by Psychiatrist Appreciate psychiatry recommendations Discussed with psychiatrist. She plans to resume effexor at 75mg tomorrow prior to possible return to [facility] Prolonged QTc QTc of 510 on admission. Unsure if this is new with medication changes? Avoid prolonging agents, Repeat EKG on 02/04/22 show improved QTc of 486 Hypothyroidism TSH WNL. Continue levothyroxine History of migraine headaches Continue Topamax DVT Ppx: SQ lovenox Code status: FULL Admission and Anticipated Discharge Date Admission Date: February 03, 2022 Subjective 56yo F with a PMH of depression, anxiety, hypothyroidism, fibromyalgia, migraine headaches and hypothyroidism who presents from [place] with 3 days of hypotension Patient seen and examined Still reports diplopia Still reports coarse tremors especially on right UE. States she has had some mild tremors which she related to her psych med for a long time but worsened in the week prior going to the [facility] Denied any headache. Denied vertigo, dizziness Denied nausea, vomiting, abd pain, diarrhea, constipation Denied cough, chest pain, shortness of breath Denied dysuria, freq, urgency, hematuria Denied fevers or chills Reports depression but denies any suicidal plans. Physical Exam Constitutional: + well hydrated; no acute distress Eyes: PERRL, conjunctivae normal, anicteric sclerae ENMT: external ear and nose normal, oropharynx normal Respiratory: normal respiratory effort, lungs clear to auscultation Cardiovascular: Rate/Rhythm: regular rate and regular rhythm S1 S2 Gastrointestinal (Abdomen): normal bowel sounds, soft, nontender, no hepatosplenomegaly Musculoskeletal: no cyanosis or clubbing, extremities motor strength 5/5 Neurologic: PERRL, EOMI, accommodation nl, no face palsy, no dysarthria Psychiatric: Orientation: alert and oriented x 3 Motor Behavior: + tremor Affect: + flat affect Mood: + depressed mood Suicidal Thoughts: denies suicidal plan Results & Data Results & Data ([facility]) Vital Signs (Past 12 Hours) Vital Signs Temp Pulse Resp BP Pulse Ox O2 Del Method 02/05/22 11:41 36.6 C 82 15 101/63 95 Room Air 02/05/22 08:46 36.5 C 75 16 107/69 97 Room Air 02/05/22 03:20 36.6 C 79 18 111/70 96 Room Air Laboratory Results Abnormal lab results 02/05/22 Range/Units 07:08 Chloride 112 H (98-107) mmol/L
--- NOTE | 2022-02-05 15:09 | Psychiatric Progress Note ---
Date of Service February 05, 2022 Impression / Recommendations Impression 56 yo female admit from [facility] for hypotension following significant medication changes--unclear how much is discontinuation syndrome vs. rapid titration of new agents. Tremor/jitteriness, etc could suggest some degree of serotonin syndrome but that typically presents with hypertension so possibly discontinuation syndrome. Hypotension is also unusual with high dose Effexor XR. QTc issues likely also polypharm. 02/04/22: improving (1) Depression: (2) Anxiety: (3) Diplopia: Plan patient is switching from IV to PO antibiotics in preparation for transition back to [facility] on 02/06/22. given time of day at assessment and mild residual symptoms of discontinuation syndrome from Prozac/Wellbutrin, will hold Effexor restart to tomorrow and do conservative dose of 75 mg with retitration by [facility] liaison will have patient sign an updated 201 in the am. Interval History Identifying Information 56 yo female admit from the [facility] for persistent hypotension. Consult is by hospitalist service for management while admitted medically pending return to [facility]. Chief Complaint diplopia Review of Systems Notes tremor of right hand baseline (improving) Subjective Subjective Patient was seen & assessed and interval progress reviewed with nursing and Dr. Lehman. Patient has had some unsteady gait on/off prior to presentation to [facility]. Liaison spoke with at bedside. Patient does not use assist device at home. head imaging showed no stroke. BP/P has been stable. Physical Exam Psychiatric currently sleeping in position with ta bear, no restless legs. Vital Signs (Past 24 Hours) Last Vital Signs Temp 36.6 C 02/05/22 11:41 Pulse 82 02/05/22 11:41 Resp 15 02/05/22 11:41 BP 101/63 02/05/22 11:41 Pulse Ox 95 02/05/22 11:41 O2 Del Method 02/05/22 11:41 Results & Data ([facility]) Laboratory Results Laboratory Results - last 24 hr 02/05/22 07:08 Sodium 139 Potassium 3.8 Chloride 112 H Carbon Dioxide 21 Anion Gap 6 BUN 14 Creatinine 1.06 Est Cr Clr Drug Dosing 52.2 Est GFR ( Amer) 68.0 Est GFR (Non-Af Amer) 58.7 BUN/Creatinine Ratio 13.2 Glucose 82 Calcium 9.0 Phosphorus 3.5 Magnesium 1.9 Current Inpatient Medications Current Inpatient Medications: Current Inpatient Medications Acetaminophen (Acetaminophen 325 Mg Tab) 650 mg PO Q4H PRN PRN Reason: Pain Stop: 03/05/22 15:59 Cefdinir (Cefdinir 300 Mg Cap) 300 mg PO BID [facility]; Protocol Stop: 02/08/22 08:59 Enoxaparin Sodium (Enoxaparin Inj 40 Mg/0.4 Ml Syr) 40 mg SQ Q24H [facility] Stop: 03/05/22 17:29 Last Admin: 02/04/22 18:21 Dose: 40 mg Levothyroxine Sodium (Levothyroxine Sodium 50 Mcg Tablet) 50 mcg PO DAILYBB [facility] Stop: 03/06/22 06:29 Last Admin: 02/05/22 06:20 Dose: 50 mcg Polyethylene Glycol (Polyethylene (Miralax) 17 Gm Pack) 17 gm PO DAILY PRN PRN Reason: Constipation Stop: 03/05/22 17:16 Topiramate (Topiramate 100 Mg Tab) 100 mg PO BID [facility] Stop: 03/05/22 20:59 Last Admin: 02/05/22 09:23 Dose: 100 mg Venlafaxine HCl (Venlafaxine Hcl Xr 150 Mg Capxr) 150 mg PO QAM [facility] Stop: 03/07/22 08:59
[2022-02-05] MEDS: ENOXAPARIN INJ 40 MG/0.4 ML SYR SQ SCH (17:34)
[2022-02-06] MEDS: LEVOTHYROXINE SODIUM 50 MCG TABLET PO SCH ×2 (06:21→06:25)
[2022-02-06] MEDS ORDERED: VENLAFAXINE HCL XR 75 MG CAPXR PO SCH (09:00)
[2022-02-06] MEDS ORDERED: CEFDINIR 300 MG CAP PO SCH (09:00)
[2022-02-06] MEDS: TOPIRAMATE 100 MG TAB PO SCH (09:42)
[2022-02-06] MEDS ORDERED: Nursing to Pharmacy Communication SCH (10:45)
[2022-02-06] MEDS ORDERED: VENLAFAXINE HCL XR 75 MG CAPXR PO ONE (12:15)
--- NOTE | 2022-02-06 12:15 | Hospitalist Progress Note ---
Date of Service February 06, 2022 Assessment & Plan (1) Acute hypotension: (2) Diplopia: (3) Hypothyroidism: (4) Headache, migraine: (5) Depression: (6) Anxiety: (7) Fibromyalgia: Plan 56yo F with a PMH of depression, anxiety, hypothyroidism, fibromyalgia, migraine headaches and hypothyroidism who presents from [facility] with 3 days of hypotension. Hypotension SBP was reported to be 70-90s prior to arrival, improved to 102/64 with 2 L NSS BP has remained stable. Afebrile, no leukocytosis. Hgb 11.9. Lactate and procal WNL. TSH WNL EKG with NSR. No acute ST changes, prolonged qtc Orthostatics negative in ED. CXR with Mild interstitial thickening seen at the left lung base. This could be chronic or represent a mild interstitial pneumonitis. Previously on Prozac and Wellbutrin, both of which have been discontinued during [facility] admission and reportedly started on Sinemet, Keppra, Effexor and ? Klonopin recently Uncomplicated UTI UA abnormal UCx - Pansensitive E coli Changed antibiotics to po to complete treatment Diplopia Noted over 2 days prior to presentation. MRI brain did not show acute abnormalities I believe this is due to medication changes at psychiatric facility. This is now resolved Anxiety Depression Admitted at the [facility] for suicidal ideation. Recently started on Effexor, Keppra and Sinemet. Some med changes at the facility as detailed by Psychiatrist Appreciate psychiatry recommendations Discussed with psychiatrist. Discharge on effexor 75mg to [facility] where they will continue med management and changes as needed Prolonged QTc QTc of 510 on admission. Unsure if this is new with medication changes? Avoid prolonging agents, Repeat EKG on 02/04/22 show improved QTc of 486 Hypothyroidism TSH WNL. Continue levothyroxine History of migraine headaches Continue Topamax Patient is medically stable for discharge back to the [facility] Admission and Anticipated Discharge Date Admission Date: February 05, 2022 Subjective 56yo F with a PMH of depression, anxiety, hypothyroidism, fibromyalgia, migraine headaches and hypothyroidism who presents from [facility] with 3 days of hypotension Patient seen and examined Reports diplopia is completely resolved States tremors is improved, back to her baseline Denied any headache, vertigo, dizziness Denied nausea, vomiting, abd pain, diarrhea, constipation Denied cough, chest pain, shortness of breath Denied dysuria, freq, urgency, hematuria Denied fevers or chills Reports depression but denies any suicidal plans. Physical Exam Constitutional: + well hydrated; no acute distress Eyes: PERRL, conjunctivae normal, anicteric sclerae ENMT: external ear and nose normal, oropharynx normal Respiratory: normal respiratory effort, lungs clear to auscultation Cardiovascular: Rate/Rhythm: regular rate and regular rhythm S1 S2 Gastrointestinal (Abdomen): normal bowel sounds, soft, nontender, no hepatosplenomegaly Musculoskeletal: no cyanosis or clubbing, extremities motor strength 5/5 Neurologic: PERRL, EOMI, accommodation nl, no face palsy, no dysarthria Psychiatric: Orientation: alert and oriented x 3 Affect: + flat affect Mood: + depressed mood Suicidal Thoughts: denies suicidal plan Results & Data Results & Data ([facility]) Vital Signs (Past 12 Hours) Vital Signs Temp Pulse Pulse Resp BP Pulse Ox O2 Del Method 02/06/22 07:25 67 02/06/22 07:01 36.7 C 72 18 103/65 96 Room Air 02/06/22 03:03 36.6 C 80 16 100/65 96 Room Air
--- NOTE | 2022-02-06 12:39 | Discharge Summary ---
Date of Service February 06, 2022 Admission HPI Per Admitting Provider This is a 56yo F with a PMH of depression, anxiety, hypothyroidism, fibromyalgia, migraine headaches and hypothyroidism who presents from [facility] with 3 days of hypotension. Resides in [facility]. Baseline BP 110s/70s. Over past 3 days, patient has felt more fatigued and lightheaded. Endorses blurry and double vision. Has been sleepin gmore. Systolic blood pressure has been ranging from 70s-90s over the past few days so sent in for further evaluation. Previously on Wellbutrin and Prozac for MDD and admitted to the [facility] for suicidal ideation approximately 1 week ago. Now on Keppra and Effexor. According to nurses notes per EMS, patient was recently started on Klonopin. Denies any fever, chills, CP, SOB, N/V, abdominal pain, dysuria, diarrhea or constipation. No melena or hematochezia. Admission Exam Per Admitting Provider NAD, well developed HEENT: PERRLA, EOMI, normal conjunctiva Lungs: CTA, no wheezing or crackles Cardiac: Normal S1/S2, no murmur Abd: ND, NT, soft MSK: no LE edema, symmetrical movements of the UE and LEs Psych: [id number] Principal Diagnosis Diplopia Depression/anxiety Urinary tract infection Discharge Exam Constitutional + well hydrated; no acute distress Eyes PERRL, conjunctivae normal, anicteric sclerae ENMT external ear and nose normal, oropharynx normal Respiratory normal respiratory effort, lungs clear to auscultation Cardiovascular Rate/Rhythm: regular rate and regular rhythm S1 S2 Gastrointestinal (Abdomen) normal bowel sounds, soft, nontender, no hepatosplenomegaly Musculoskeletal no cyanosis or clubbing, extremities motor strength 5/5 Neurologic PERRL, EOMI, accommodation nl, no face palsy, no dysarthria Psychiatric Orientation: alert and oriented x 3 Motor Behavior: + tremor Affect: + flat affect Mood: + depressed mood Suicidal Thoughts: denies suicidal plan Discharge Data Allergies Allergy/AdvReac Type Severity Reaction Status Date / Time No Known Allergies Allergy Unverified 02/03/22 15:20 Consultations 02/03/22 14:10 ED Decision to Admit Stat 02/03/22 17:08 Consult Psychiatry Routine Ordered Studies 02/03/22 15:20 MRI Brain [MR brain wo/w con] Routine Brain parenchyma: There is a minimal microangiopathic change. There is no hemorrhage or mass effect. There is no restricted diffusion to suggest acute ischemia. No enhancing mass lesion is identified on the postcontrast images. Samson-white matter differentiation is preserved. No extra-axial fluid collection is seen. The cerebellar tonsils are normal in configuration. Ventricles, sulci, and cisterns: Normal in configuration. Pituitary and sella: Unremarkable. Intracranial vasculature: Normal flow voids are maintained at the skull base. Orbits: The bony orbits are grossly intact. Orbital contents are normal in appearance. Sinuses and mastoids: There is trace mucosal thickening within the maxillary antra, as well as the frontal and sphenoid sinuses. The mastoid air cells are clear. Calvarium: Unremarkable. Cervical cord: Partially visualized cervical spinal cord is normal in morphology and signal intensity. IMPRESSION: No intracranial abnormality is identified. Hospital Course (1) Acute hypotension: (2) Diplopia: (3) Hypothyroidism: (4) Headache, migraine: (5) Depression: (6) Anxiety: (7) Fibromyalgia: Plan 56yo F with a PMH of depression, anxiety, hypothyroidism, fibromyalgia, migraine headaches and hypothyroidism who presents from [facility] with 3 days of hypotension. Hypotension SBP was reported to be 70-90s prior to arrival, improved to 102/64 with 2 L NSS on presentation BP has remained stable. Afebrile, no leukocytosis. Hgb 11.9. Lactate and procal WNL. TSH WNL EKG with NSR. No acute ST changes, prolonged qtc Orthostatics negative in ED. CXR with Mild interstitial thickening seen at the left lung base. This could be chronic or represent a mild interstitial pneumonitis. Previously on Prozac and Wellbutrin, both of which have been discontinued during [facility] admission and reportedly started on Sinemet, Keppra, Effexor and ? Klonopin recently Uncomplicated UTI UA abnormal UCx - Pansensitive E coli Discharged on po cefdinir to complete treatment Diplopia Noted over 2 days prior to presentation. MRI brain did not show acute abnormalities I believe this is due to medication changes at psychiatric facility. This is now resolved Anxiety Depression Admitted at the [facility] for suicidal ideation. Was comanaged with the Psychiatrist Discharged on effexor 75mg daily to [facility]. Psychiatrist at [facility] will continue to adjust meds as appropriate Prolonged QTc QTc of 510 on admission. Unsure if this is new with medication changes? Avoid prolonging agents, Repeat EKG on 02/04/22 show improved QTc of 486 Hypothyroidism TSH WNL. Continue levothyroxine History of migraine headaches Continue Topamax Patient discharged back to the [facility] Total Time Total Time Spent Total Time Spent (In Minutes): 40 Total Time Includes: Examination of the Patient, Discharge Planning, Medication Reconciliation and Communication With Other Providers Discharge Plan Discharge Items Patient Disposition: Transfer Behavioral Health Fac Reason For Visit: HYPOTENSION Discharge Diagnosis: Diplopia Depression/anxiety Urinary tract infection Activity: Resume your previous activity Non-emergency contact: Primary Care Provider and Psychiatrist Call non-emergency contact if: you have any medication questions and your symptoms worsen Follow-up/Referrals: Kartik Tejeda MD [Primary Care Provider] - Diet: Regular Addtl Attending Provider Instructions: Mrs Eric. You were brought to the hospital due to low blood pressure at the [facility]. Your blood pressure is normal now. You were evaluated and found to have urinary infection. Please continue the antibiotics (cefdinir) for 2 more days to complete treatment. Your diplopia is resolved. You were evaluated by Psychiatry and discharged on lower dose of effexor than you were taking at home. The psychiatrist at the [facility] will continue to make medication adjustments as appropriate. Please follow up with your Primary Doctor. It was a pleasure taking care of you. Pending Studies at Discharge: No Stand-Alone Forms: My [facility] Medications and DC Order Prescriptions: New venlafaxine 75 mg Capsule,Extended Release 24hr 75 mg PO QAM 30 Days Qty: 30 0RF cefdinir 300 mg Capsule 300 mg PO BID 2 Days Qty: 4 0RF Continued levetiracetam 250 mg Tablet 250 mg PO TID carbidopa-levodopa 25-100 mg Tablet 1 tab PO DAILY acetaminophen 325 mg Tablet 650 mg PO Q4 MDD 6 doses PRN (Reason: Pain) levothyroxine 50 mcg tablet 50 mcg PO .DAILY AT 0700 topiramate 100 mg Tablet 50 mg PO BID Excedrin Extra Strength 250-250-65 mg Tablet 2 tab PO DAILY PRN (Reason: migraines) Discontinued venlafaxine 150 mg Capsule,Extended Release 24hr 150 mg PO .DAILY AT 1300 venlafaxine 150 mg Capsule,Extended Release 24hr 150 mg PO .DAILY AT 0900. Rx Instructions: give at 0900 fluoxetine [Prozac] 40 mg Capsule 80 mg PO DAILY bupropion HCl [Wellbutrin XL] 150 mg Tablet Extended Release 24 Hr 450 mg PO QAM Discharge Orders: Discharge Order (Routine); Ordered 02/06/22 Ordered By: Maureen Lehman Admission Data Admit Date/Time: 02/05/22 16:40 Attending Provider: Maureen Lehman I. Admit Provider: Jean Li Primary Care Provider: Kartik Tejeda Other Providers: Jean Li ; Dayan Fregoso ; Jo Vigil ; Ghazala Ngo Other Interventions: Discharge Summary Assessment (RN) Last Done: 02/06/22 13:14
== END 2022-02-06 15:10 ==
LOC: ED 11:42 → 4W 11:42 → SUATTDRO 14:56 → 4W 16:16